=== PATIENT | male | born 2000 | race African-American/Black ===

== ENCOUNTER 2021-03-23 19:26 | Emergency (ER) | payer OTHER ==
[~2021-03-23] VITALS: Ht 182.9 cm; Wt 104.3 kg
[2021-03-23] MEDS ORDERED: EPIPEN0.3 MG/0.1 IM (22:06)
[2021-03-23] MEDS ORDERED: MEDROLDOSEPACK PO (22:06)
[2021-03-23] MEDS ORDERED: VENTOLIN HFA 1818 GM INH (22:06)
[2021-03-23] MEDS ORDERED: ZPAK PO (22:06)
[2021-03-23 22:08] VITALS: BP 140/80
--- NOTE | 2021-03-24 12:59 | EKG ---
[place] [address] [facility] [employer] [place] [address] ELECTROCARDIOGRAM REPORT Name: CHRISTINE BUI Room #: TIFFANY [place]#: [id number] Admission: 03/23/21 Attend Phys: Discharge: 03/23/21 Date of : [birth year] Report #: [id number] [facility] ED Test Date: 2021-03-23 Test Time: 21:46:45 Pat Name: CHRISTINE BUI Department: Room: Gender: M [employer]co & President: unknown : 2000 Requested By: Angelique Crabtree Order Number: [id number] MD: Peng Mcdowell Measurements Intervals [place] Rate: 97 P: 53 MO: 140 QRS: 57 QRSD: 90 T: 20 QT: 437 QTc: 555 Interpretive Statements Sinus rhythm ST elev, probable normal early repol pattern Prolonged QT interval No previous ECG available for comparison Electronically Signed On 03-24-2021 12:59:32 CDT by Peng Mcdowell [email or web address] <ELECTRONICALLY SIGNED> By: Peng Mcdowell MD 03/24/21 1259 2146 2146 Peng Mcdowell MD /[email or web address]
== END 2021-03-23 22:08 | disposition home or self-care (01) ==
LOC: ER 19:26
DX: T78.1XXA Other adverse food reactions, not elsewhere classified, initial encounter (principal); X58.XXXA Exposure to other specified factors, initial encounter; J18.9 Pneumonia, unspecified organism; Z91.02 Food additives allergy status